=== PATIENT | male | born 1930 | race Caucasian/White ===

== ENCOUNTER 2017-07-23 02:45 | Inpatient (IN) | payer OTHER, MEDICARE ==
[~2017-07-23] VITALS: Ht 182.9 cm; Wt 76.2 kg
[~2017-07-23 02:45] MED LIST: ST. JOSEPH ASPI81 M1 PO; XALATAN2.5 ML OPH
--- NOTE | 2017-07-23 11:31 | Admission Core Measures ---
Acute Coronary Syndrome (CM) ACS Core Measures Acute Coronary Syndrome Diagnosis No Congestive Heart Failure (NEW) CHF Core Measures Congestive Heart Failure Diagnosis No Cerebrovascular Accident (NEW) CVA Core Measures CVA/TIA Diagnosis No Venous Thromboembolism VTE Core Jr (View Protocol) VTE Risk Factors Surgery No Mechanical VTE Prophylaxis d/t N/A MechProphylax Ordered No VTE Pharm Prophylaxis d/t NA PharmProphylax ordered Problem List As ranked by this Provider includes Assessment & Plan 1. Unilateral primary osteoarthritis, left knee HOME MEDS Home Med List Aspirin ([place] Aspirin) 81 MG TABLET.DR 1 TAB PO D ElasticDot ( Reported) Latanoprost (Xalatan) 0.005 % DROPS 1 GTT OPH QPM GLAUCOMA (Reported)
--- NOTE | 2017-07-23 11:33 | Surg Short-stay <48hrs Dis Sum ---
Visit Information Visit Dates Admission Date: 07/23/17 Discharge Date: 07/26/17 Surgical Short Stay DC Summary Admission Diagnosis: Primary osteoarthritis, left knee Final Diagnosis: WERO s/p left knee replacement Procedure(s): Left knee replacement Summary/Significant Findings: Patient was admitted to the hospital for an elective left total knee replacement. The procedure was tolerated well and patient was transferred to a general surgical floor. Diet was advanced and tolerated and the patient voided spontaneously. The patient was evaluated and treated by physical therapy. At the time of hospital discharge, the vital signs were stable, neurovascular status was intact, and pain was controlled with the use of oral pain medications. Condition at Discharge: Stable Discharge Disposition: home health services Discharge instructions provided to patient/family: Yes Post discharge follow-up plan: F/u in [address] Santiago
[2017-07-23] MEDS ORDERED: DILAUDID2 M1 PO (11:44)
[2017-07-23] MEDS ORDERED: MIRALAX17 G1 PO (11:44)
[2017-07-23] MEDS ORDERED: COLACE100 M1 PO (11:44)
[2017-07-23] MEDS ORDERED: ASPIRIN325 M2 PO (11:44)
[2017-07-23] MEDS ORDERED: OMEPRAZOLE20 M2 PO (11:44)
--- NOTE | 2017-07-23 11:48 | Patient Discharge Instructions ---
Discharge Instructions General Discharge Information You were seen/treated for: Left knee osteoarthritis You had these procedures: Left knee replacement on 07/23/17 Watch for these problems: Increasing pain despite the use of pain medication Increasing redness, warmth or swelling Drainage of any type from incision Inability to bear weight on operative leg Persistent nausea and vomiting Fever greater than 101.5 degrees Other wound care: Please keep wound clean and dry. No ointments or lotions of any type on or near incision. Your dressing will be changed by your nurse on the second day after your surgery. Daily dry dressing changes are recommended each day thereafter. Do not soak your wound- no tub baths/swimming. You may shower 48hr after surgery. Special Instructions: Aspirin: You are taking this medication to help prevent blood clot formation. Please take with food to protect your stomach lining. Please take as directed. Please stop taking Aspirin 81 mg daily as you are now taking a higher dose Aspirin 325 mg twice daily. Constipation: Pain medication can cause constipation. It is recommended that you take Colace and Miralax each day. Discontinue this medication if you develop loose stool or diarrhea. If you wish to continue this medication, it is available over the counter. If you are unable to move your bowels or unable to pass gas and are developing bloating, nausea, or vomiting as a result, please contact your doctor. Diet Continue normal diet: Yes Activity Activity Self Limited: Yes Activity Limited to: Weight bear as tolerated Other activity limits: Use rolling walker as needed Acute Coronary Syndrome Inclusion Criteria At DC or during hospital stay patient has or had the following: ACS DIAGNOSIS No Discharge Core Measures Meds if any: Prescribed or Continued at Discharge Meds if any: NOT Prescribed or Continued at Discharge Congestive Heart Failure Inclusion Criteria At DC or during hospital stay patient has or had the following: CHF DIAGNOSIS No Discharge Core Measures Meds if any: Prescribed or Continued at Discharge Meds if any: NOT Prescribed or Continued at Discharge Cerebrovascular accident Inclusion Criteria At DC or during hospital stay patient has or had the following: CVA/TIA Diagnosis No Discharge Core Measures Meds if any: Prescribed or Continued at Discharge Meds if any: NOT Prescribed or Continued at Discharge Venous thromboembolism Inclusion Criteria VTE Diagnosis No VTE Type NONE VTE Confirmed by (Test) NONE Discharge Core Measures - Per Current guidelines, there needs to be overlap - treatment for the first 5 days of Warfarin therapy. - If discharged on Warfarin prior to 5 days of - overlap therapy, the patient will need to be - assessed for post discharge needs including - *Post discharge parental anticoagulation - *Warfarin and/or parental anticoagulation education - *Follow up date to check INR post discharge At least 5 days overlap therapy as Inpatient No Meds if any: Prescribed or Continued at Discharge Note: Overlap Therapy is Warfarin and Anticoagulant Meds if any: NOT Prescribed or Continued at Discharge
--- NOTE | 2017-07-23 15:54 | PN- Orthopedic ---
Subjective Subjective: POSTOP CHECK Patient denies any postop pain, he reports numbness in both legs. Tolerating gilmer zandra without any nausea or vomiting. Offers no complaints. Denies voiding. Objective Vital Signs and I&Os Intake & Output 07/23 1600 07/23 0800 07/23 0000 07/22 1600 07/22 0807/22 0000 Intake Total Output Total Balance Patient 165 lb Weight Physical Exam: Vitals - BP 112/73, T 96.6, P 78, O2 sat 95% on RA Gen - patient resting comfortably in pacu awake an alert in NAD, [place]AC [place] in left ear Cardiac - S1S2 noted, RRR Lungs - CTAB Ext - LLE with chela wrap, ice and onQ in place, dressing c/d/i, motor and sensory diminished due to spinal, no edema or calf tenderness, alps present Current Medications: Current Medications Sig/Mario Alberto Start time Last Medication Dose Route Stop Time Status Admin Acetaminophen 975 MG ONCE 07/23 0000 NR PO 07/23 2359 Cefazolin Sodium 2,000 MG ONCE 07/23 0000 NR IV 07/23 235 Fentanyl Citrate 100 MCG .STK-MED ONE 07/23 0725 DC IM 07/23 07 Midazolam HCl 2 MG .STK-MED ONE 07/23 07 DC IM 07/23 07 Morphine Sulfate 10 MG .STK-MED ONE 07/23 07 DC IV 07/23 07 Oxycodone HCl 10 MG ONCE 07/23 0000 NR PO 07/23 235 Ropivacaine 500 ML ONCE ONE 07/23 1045 DC ON-Q Ball 1 BAG INJ 07/23 1046 Tranexamic Acid 2,000 MG .STK-MED ONE 07/23 07 DC IV 07/23 07 Assessment/Plan Assessment/Plan This is a 86 M POD 0 s/p L TKR with B/L lower extremity numbness related to spinal block PT eval, WBAT Advance diet, cont IVF Postop abx - ancef x2 Pain regimen, onQ, ice prn DVT ppx - alps, asa bid GI ppx on board Home med on board Bowel regimen on board Monitor postop void Encourage IS Core Measures Venous Thromboembolism VTE Risk Factors Surgery No Mechanical VTE Prophylaxis d/t N/A MechProphylax Ordered No VTE Pharm Prophylaxis d/t NA PharmProphylax ordered
--- NOTE | 2017-07-23 16:41 | Operative Report ---
Operative/Inv Procedure Report Surgery Date: 07/23/17 Name of Procedure: 1. Left total knee replacement 2. Right knee cortisone injection Pre-Operative Diagnosis: Bilateral knee primary DJD Post-Operative Diagnosis: Same Estimated Blood Loss: 50ml to 100ml Surgeon/Wood Machinist: Pamela KRUSE,Nuno Robert Anesthesia: block Operative/Procedure Note Note: Description of Procedure: The patient was taken to the operating room and positively identified. After induction of spinal anesthesia and administration of appropriate pre-operative antibiotics, the patient was positioned supine on the operating room table and all bony prominences were well padded. The right knee was prepped sterilely and injected with a mixture of 2 mL of Depo -Medrol and 6 mL of half percent Marcaine. A Band-Aid was placed over the injection site. Attention was then turned to the left lower extremity. A well-padded pneumatic tourniquet was placed on the left upper thigh. After performing a surgical timeout, the left lower extremity was prepped and draped in the usual sterile fashion. After exsanguination with Esmarch the tourniquet was inflated to 250mm of mercury. A standard medial parapatellar approach was made to the knee. This was carried down through skin and subcutaneous tissue to the level of the fascia. Meticulous hemostasis was maintained with Bovie electrocautery. The extensor mechanism and patellar retinaculum were opened sharply and the patella was everted. The infrapatellar fat was resected in order to improve exposure. Osteophytes were trimmed from the patella and femoral condyles and the patella was re-everted and tucked laterally. A medial release was performed and the cruciate ligaments were resected. The tibia was then subluxed anteriorly. Utilizing the appropriate extra-medullary guide, the proximal tibia was trimmed perpendicular to the long axis of the tibial shaft. Attention was then turned to the femur. After opening the medullary canal, the distal femoral cut was made in 6 degrees of valgus utilizing the appropriate intra-medullary guide. The extension gap was checked and found to be appropriate. The femur was then sized and the remainder of the femoral cuts were made with a size 5 4-in-1 femoral cutting guide. The flexion gap was checked and found to be symmetric and appropriate. The knee was then trialed with a size 5 femoral component, a size 6 tibial component and a size 11 mm polyethylene insert. The patella was trimmed to accept an A 35 patella. This yielded excellent range of motion, stability and patellar tracking. All trial components were removed and the knee was copiously irrigated with sterile saline. All components were cemented into place with [place] Simplex cement. All the components were of the [employer] Triathlon knee system of the above stated sizes. The knee was again irrigated after cementation. The extensor mechanism and patellar retinaculum were repaired using interrupted #1 vicryl suture. The skin was re-approximated with 2-0 vicryl and closed with marcelino. A sterile dressing was applied, the tourniquet was deflated, the patient was awakened and taken to the recovery room in satisfactory condition.
[2017-07-23 16:43] VITALS: BP 112/62
[2017-07-23 20:40] VITALS: BP 108/68
[2017-07-23 23:18] VITALS: BP 111/74
[2017-07-24 06:42] VITALS: BP 130/90
[2017-07-24 08:05] LABS: ABSOLUTE BASOPHIL COUNT 0.1 /CUMM (0.0-0.2); ABSOLUTE EOSINOPHIL COUNT 0.3 /CUMM (0.0-0.7); ABSOLUTE GRANULOCYTE CT 8.1 /CUMM (1.4-6.5); ABSOLUTE LYMPH COUNT 10.9 /CUMM (1.2-3.4); ABSOLUTE MONOCYTE COUNT 2.9 /CUMM (0.10-0.60); BASOPHIL % 0.5 % (0.0-2.0); EOSINOPHIL % 1.1 % (0-5); GRANULOCYTE % 36.3 % (42.2-75.2); HEMATOCRIT 42.1 % (42-52); MEAN CORPUSCULAR HGB 31.5 PG (27.0-31.0); MEAN CORPUSCULAR VOLUME 95.5 FL (80.0-94.0); MEAN PLATELET VOLUME 7.4 FL (7.4-10.4); PLATELET COUNT 217 /CUMM (130-400); RBC DISTRIBUTION WIDTH 15.1 % (11.5-14.5); RED BLOOD CELL CT 4.41 /CUMM (4.70-6.10); WHITE BLOOD CELL COUNT 22.2 /CUMM (4.8-10.8)
--- NOTE | 2017-07-24 10:05 | PN- Orthopedic ---
Subjective Subjective: Minimal pain, no acute events overnight, patient feeling well. No voiced complaints Objective Vital Signs and I&Os Vital Signs Date Time Temp Pulse Resp B/P B/P Pulse O2 O2 Flow FiO2 Mean Ox Delivery Rate 07/24 0642 98.4 88 20 130/90 95 Room Air 07/23 2318 98.0 81 20 111/74 96 Room Air 07/23 2040 97.6 84 18 108/68 91 Room Air 07/23 2009 Room Air 07/23 1643 97.9 78 18 112/62 96 Room Air Intake & Output 07/24 1600 07/24 0807/24 0000 07/23 1600 07/23 0000 Intake Total 930 Output Total 650 450 Balance 280 -450 Intake, IV 450 Intake, Oral 480 Number 2 Bowel Movements Output, Urine 650 450 Patient 168 lb Weight Weight Standing Scale Measurement Method Physical Exam: Well-developed well-nourished no apparent distress. HEENT: Atraumatic, extraocular motion intact Neck: Supple, no lymphadenopathy Respiratory: No respiratory distress Extremities: No edema on Q in place LEFT lower extremity dressing in place, Incision line is clean dry and intact with minimal bloody drainage. No signs of infection. Mild joint effusion Range of motion is 0-90. Compression wrap in place. ALPS in place Neurovascularly intact distally Bilateral calves are supple, nontender. Neuro: Alert and oriented x3 Psych: Mood affect normal, normal memory normal judgment. Skin: Warm and dry, no rash on exposed skin Results Last 48 Hours of Labs: Laboratory Tests 07/24 0714 Chemistry Sodium (137 - 145 mmol/L) 139 Potassium (3.5 - 5.1 mmol/L) 4.4 Chloride (98 - 107 mmol/L) 108 H Carbon Dioxide (22 - 30 mmol/L) 20 L Anion Gap (5 - 16) 11 BUN (9 - 20 mg/dL) 12 Creatinine (0.7 - 1.2 mg/dL) 0.8 Estimated GFR (>60 ml/min) > 60 BUN/Creatinine Ratio (7 - 25 %) 15.0 Hematology CBC w Diff MAN DIFF ORDERED WBC (4.8 - 10.8 /CUMM) 22.2 H RBC (4.70 - 6.10 /CUMM) 4.41 L Hgb (14.0 - 18.0 G/DL) 13.9 L Hct (42 - 52 %) 42.1 MCV (80.0 - 94.0 FL) 95.5 H MCH (27.0 - 31.0 PG) 31.5 H MCHC (33.0 - 37.0 G/DL) 33.0 RDW (11.5 - 14.5 %) 15.1 H Plt Count (130 - 400 /CUMM) 217 MPV (7.4 - 10.4 FL) 7.4 Gran % (42.2 - 75.2 %) 36.3 L Lymphocytes % (20.5 - 51.1 %) 49.2 Monocytes % (1.7 - 9.3 %) 12.9 H Eosinophils % (0 - 5 %) 1.1 Basophils % (0.0 - 2.0 %) 0.5 Absolute Granulocytes (1.4 - 6.5 /CUMM) 8.1 H Absolute Lymphocytes (1.2 - 3.4 /CUMM) 10.9 H Absolute Monocytes (0.10 - 0.60 /CUMM) 2.9 H Absolute Eosinophils (0.0 - 0.7 /CUMM) 0.3 Absolute Basophils (0.0 - 0.2 /CUMM) 0.1 Platelet Estimate (ADEQUATE) VERIFIED BY SMEAR Poikilocytosis 1+ Anisocytosis 1+ [place]bbie Cells 1+ Assessment/Plan Assessment/Plan Postop day #1 status post left total knee arthroplasty Perioperative antibiotics. Pain medication as needed. Out of bed Physical therapy, weightbearing as tolerated DC IV fluids Continue on Q Regular diet Leukocytosis, likely reactive, will recheck tomorrow, monitor fever trend Aspirin for DVT prophylaxis ALPS for DVT prophylaxis Regular home meds Dressing change postop day 2 Plan for dc to home w vna 1-2 days Core Measures Venous Thromboembolism VTE Risk Factors Surgery No Mechanical VTE Prophylaxis d/t N/A MechProphylax Ordered No VTE Pharm Prophylaxis d/t NA PharmProphylax ordered
[2017-07-24 15:16] VITALS: BP 128/76
[2017-07-24 19:05] VITALS: BP 118/76
[2017-07-24 23:13] VITALS: BP 123/80
[2017-07-25 02:55] VITALS: BP 128/74
[2017-07-25 07:00] VITALS: BP 118/76
--- NOTE | 2017-07-25 07:43 | PN- Orthopedic ---
Subjective Subjective: Pt sitting in bed eating breakfast with no complaints. He denies subjective fevers, although his temp was up to 100.7 last night. Says he has had a mildy productive cough but feels fine. voiding, no dysurea. working with PT, hoping to get cleared to do stairs today. Objective Vital Signs and I&Os Vital Signs Date Time Temp Pulse Resp B/P B/P Pulse O2 O2 Flow FiO2 Mean Ox Delivery Rate 07/25 07 98.3 91 20 118/76 92 07/25 0255 98.8 95 20 128/74 96 07/24 2313 100.2 104 18 123/80 95 Room Air 07/24 1905 100.7 124 20 118/76 94 07/24 1516 100.0 90 18 128/76 93 Room Air Intake & Output 07/25 0807/25 0000 07/24 1600 07/24 0807/24 0000 07/23 1600 Intake Total 580 650 930 Output Total 450 600 500 650 450 Balance 130 -600 150 280 -450 Intake, IV 100 150 450 Intake, Oral 480 500 480 Number 1 2 Bowel Movements Output, Urine 450 600 500 650 450 Patient 168 lb Weight Weight Standing Scale Measurement Method Physical Exam: gen- NAD resp- clear bilaterally, decreased breath sounds at bases cardio-rrr abd- soft nontender ext- left knee in chela bandage, onQ is out, dressing clean and dry. distal sensory and motor function intact. 2+ PT pulse bilaterally Current Medications: Current Medications Sig/Mario Alberto Start time Last Medication Dose Route Stop Time Status Admin Acetaminophen 1,000 MG Q6 07/24 2359 AC 07/25 IV 07/25 1801 0537 Aspirin 325 MG BID 07/23 2199 AC 07/24 PO 2108 Dextrose/Sodium 1,000 ML .[id number] 07/23 1630 DC 07/24 Chloride IV 0515 Docusate Sodium 100 MG BID 07/23 220 AC 07/24 PO 2108 Hydromorphone HCl 2 MG Q4P PRN 07/23 1630 AC PO Hydromorphone HCl 4 MG Q4P PRN 07/23 1630 AC PO Latanoprost 1 GTT AT BEDTIME 07/23 2199 AC 07/24 OPH 2108 Morphine Sulfate 2 MG Q2P PRN 07/23 1630 AC IV Omeprazole 20 MG DAILY AC 07/24 0700 AC 07/25 PO 0536 Ondansetron HCl 4 MG Q6P PRN 07/23 1630 AC IV Patient Medication 1 ED ONE ONE 07/24 1730 DC Teaching ED 07/24 1731 Polyethylene Glycol 17 GM DAILY 07/24 1000 AC 07/24 PO 0846 Promethazine HCl 12.5 MG Q6P PRN 07/23 1630 AC IV 07/30 1144 Results Last 48 Hours of Labs: Laboratory Tests 07/25 07/24 0637 0714 Chemistry Sodium (137 - 145 mmol/L) 139 Potassium (3.5 - 5.1 mmol/L) 4.4 Chloride (98 - 107 mmol/L) 108 H Carbon Dioxide (22 - 30 mmol/L) 20 L Anion Gap (5 - 16) 11 BUN (9 - 20 mg/dL) 12 Creatinine (0.7 - 1.2 mg/dL) 0.8 Estimated GFR (>60 ml/min) > 60 BUN/Creatinine Ratio (7 - 25 %) 15.0 Hematology CBC w Diff Pending MAN DIFF ORDERED WBC (4.8 - 10.8 /CUMM) Pending 22.2 H RBC (4.70 - 6.10 /CUMM) Pending 4.41 L Hgb (14.0 - 18.0 G/DL) Pending 13.9 L Hct (42 - 52 %) Pending 42.1 MCV (80.0 - 94.0 FL) Pending 95.5 H MCH (27.0 - 31.0 PG) Pending 31.5 H MCHC (33.0 - 37.0 G/DL) Pending 33.0 RDW (11.5 - 14.5 %) Pending 15.1 H Plt Count (130 - 400 /CUMM) Pending 217 MPV (7.4 - 10.4 FL) Pending 7.4 Gran % (42.2 - 75.2 %) 36.3 L Lymphocytes % (20.5 - 51.1 %) 49.2 Monocytes % (1.7 - 9.3 %) 12.9 H Eosinophils % (0 - 5 %) 1.1 Basophils % (0.0 - 2.0 %) 0.5 Absolute Granulocytes (1.4 - 6.5 /CUMM) 8.1 H Absolute Lymphocytes (1.2 - 3.4 /CUMM) 10.9 H Absolute Monocytes (0.10 - 0.60 /CUMM) 2.9 H Absolute Eosinophils (0.0 - 0.7 /CUMM) 0.3 Absolute Basophils (0.0 - 0.2 /CUMM) 0.1 Platelet Estimate (ADEQUATE) VERIFIED BY SMEAR Poikilocytosis 1+ Anisocytosis 1+ [place] Cells 1+ Assessment/Plan Assessment/Plan 86yo M SP L TKA POD2. Had low grade temp overnight, IV tylenol started and has mild productive cough. Will order CXR this AM PT- needs to be cleared on stairs will change dressing prior to DC to home DVT ppx-ASA and alps reg diet Encourage IS Possible DC later today if cleared by PT FU AM labs and CXR Core Measures Venous Thromboembolism VTE Risk Factors Surgery No Mechanical VTE Prophylaxis d/t N/A MechProphylax Ordered No VTE Pharm Prophylaxis d/t NA PharmProphylax ordered
[2017-07-25 07:53] LABS: ABSOLUTE BASOPHIL COUNT 0.1 /CUMM (0.0-0.2); ABSOLUTE EOSINOPHIL COUNT 0.5 /CUMM (0.0-0.7); ABSOLUTE GRANULOCYTE CT 7.3 /CUMM (1.4-6.5); ABSOLUTE LYMPH COUNT 14.5 /CUMM (1.2-3.4); ABSOLUTE MONOCYTE COUNT 3.1 /CUMM (0.10-0.60); BASOPHIL % 0.4 % (0.0-2.0); EOSINOPHIL % 1.8 % (0-5); GRANULOCYTE % 28.6 % (42.2-75.2); MEAN CORPUSCULAR HGB 31.6 PG (27.0-31.0); MEAN CORPUSCULAR HGB CONC 33.3 G/DL (33.0-37.0); MEAN CORPUSCULAR VOLUME 95.2 FL (80.0-94.0); MEAN PLATELET VOLUME 7.4 FL (7.4-10.4); PLATELET COUNT 208 /CUMM (130-400); RBC DISTRIBUTION WIDTH 15.9 % (11.5-14.5); RED BLOOD CELL CT 3.99 /CUMM (4.70-6.10); WHITE BLOOD CELL COUNT 25.5 /CUMM (4.8-10.8)
[2017-07-25 11:00] VITALS: BP 120/68
[2017-07-25 14:09] VITALS: BP 108/60
--- NOTE | 2017-07-25 15:41 | RADIOLOGY REPORT ---
EXAMINATION: CR CHEST CLINICAL INFORMATION: Postop low-grade temperature and mild productive cough. Presumptive diagnosis of pneumonia versus atelectasis. COMPARISON: None TECHNIQUE: 2 views of the chest were obtained. FINDINGS: The cardiomediastinal silhouette is within normal limits in size. Tortuosity and calcification of the aorta is seen. Lungs bilaterally are symmetrically expanded and clear. No focal consolidation, effusion or pneumothorax is seen. Mild vertebral spondylosis is seen in the mid and lower thoracic spine. IMPRESSION: No evidence of focal pneumonia or atelectasis.
[2017-07-25 18:00] VITALS: BP 118/70
[2017-07-25 22:08] VITALS: BP 108/70
[2017-07-26 01:56] VITALS: BP 112/72
[2017-07-26 06:31] VITALS: BP 104/62
--- NOTE | 2017-07-26 07:47 | PN- Orthopedic ---
Subjective Subjective: Feels well, pain controlled. Cleared stairs with PT yesterday. Voiding spontanously. Eager to go home today. Offers no complaints. No further fevers, CXR from yesterday revealed no evidence of active disease. Objective Vital Signs and I&Os Vital Signs Date Time Temp Pulse Resp B/P B/P Pulse O2 O2 Flow FiO2 Mean Ox Delivery Rate 07/26 0631 98.0 88 20 104/62 93 07/26 0156 98.4 93 20 112/72 93 07/25 2208 98.0 111 19 108/70 95 Room Air / 1800 98.2 109 19 118/70 95 Room Air 07/25 1409 97.8 103 20 108/60 96 Room Air 07/25 1100 97.7 99 20 120/68 95 Room Air Intake & Output 07/26 0800 07/26 0000 07/25 1600 07/25 0800 07/25 0000 07/24 1600 Intake Total 801 669 4014 580 650 Output Total 300 350 450 600 500 Balance 50 100 1510 130 -600 150 Intake, IV 100 100 150 Intake, Oral 755 071 9056 480 500 Number 0 1 Bowel Movements Output, Urine 300 350 450 600 500 Physical Exam: Gen - patient resting comfortably in pacu awake an alert in NAD, [place] in left ear Cardiac - S1S2 noted, RRR Lungs - CTAB Ext - L knee c/d/i, incision closed with marcelino healing well with no signs of infection, motor and sensory intacts, no edema or calf tenderness, alps present Current Medications: Current Medications Sig/Mario Alberto Start time Last Medication Dose Route Stop Time Status Admin Acetaminophen 1,000 MG Q6 07/24 2359 DC 07/25 IV 07/25 1801 1854 Aspirin 325 MG BID 07/23 2200 AC 07/25 PO 2140 Docusate Sodium 100 MG BID 07/23 2200 AC 07/25 PO 2140 Hydromorphone HCl 2 MG Q4P PRN 07/23 1630 AC PO Hydromorphone HCl 4 MG Q4P PRN 07/23 1630 AC PO Latanoprost 1 GTT AT BEDTIME 07/23 2199 AC 07/25 OPH 2139 Morphine Sulfate 2 MG Q2P PRN 07/23 1630 AC IV Omeprazole 20 MG DAILY AC 07/24 0700 AC 07/26 PO 0537 Ondansetron HCl 4 MG Q6P PRN 07/23 1630 AC IV Patient Medication 1 ED ONE ONE 07/25 1315 DC Teaching ED 07/25 1316 Polyethylene Glycol 17 GM DAILY 07/24 1000 AC 07/25 PO 1154 Promethazine HCl 12.5 MG Q6P PRN 07/23 1630 AC IV 07/30 1144 Results Last 48 Hours of Labs: Laboratory Tests 07/25 0637 Hematology CBC w Diff NO MAN DIFF REQ WBC (4.8 - 10.8 /CUMM) 25.5 H RBC (4.70 - 6.10 /CUMM) 3.99 L Hgb (14.0 - 18.0 G/DL) 12.6 L Hct (42 - 52 %) 38.0 L MCV (80.0 - 94.0 FL) 95.2 H MCH (27.0 - 31.0 PG) 31.6 H MCHC (33.0 - 37.0 G/DL) 33.3 RDW (11.5 - 14.5 %) 15.9 H Plt Count (130 - 400 /CUMM) 208 MPV (7.4 - 10.4 FL) 7.4 Gran % (42.2 - 75.2 %) 28.6 L Lymphocytes % (20.5 - 51.1 %) 56.9 H Monocytes % (1.7 - 9.3 %) 12.3 H Eosinophils % (0 - 5 %) 1.8 Basophils % (0.0 - 2.0 %) 0.4 Absolute Granulocytes (1.4 - 6.5 /CUMM) 7.3 H Absolute Lymphocytes (1.2 - 3.4 /CUMM) 14.5 H Absolute Monocytes (0.10 - 0.60 /CUMM) 3.1 H Absolute Eosinophils (0.0 - 0.7 /CUMM) 0.5 Absolute Basophils (0.0 - 0.2 /CUMM) 0.1 Assessment/Plan Assessment/Plan This is a 86 M POD 3 s/p L TKR who is recovering well and cleared by PT. Stable for discharge at this time OOB, WBAT Reg diet Pain regimen and ice prn Daily dry dressing changes DVT ppx - alps, asa bid GI ppx on board Home med on board Bowel regimen on board Encourage IS D/c today Will d/w Dr. Santiago Core Measures Venous Thromboembolism VTE Risk Factors Surgery No Mechanical VTE Prophylaxis d/t N/A MechProphylax Ordered No VTE Pharm Prophylaxis d/t NA PharmProphylax ordered
== END 2017-07-26 13:12 | disposition home health service (06) | DRG 470 ==
LOC: SDA 02:45 → ENRESERV 15:02 → ENTRNSPT 15:36 → EDTRNSPT 15:56 → EDTRNSPTSTS 15:56 → 2NB 16:06 → CMPTRNSPT 16:24 → ENPENDDIS 07-26 07:52 → ENTRNSPT 07-26 12:29 → EDTRNSPTSTS 07-26 13:01 → EDTRNSPT 07-26 13:01 → 2NB 07-26 13:12 → CMPTRNSPT 07-26 14:10
PROVIDERS: Physician Assistant Surgical
PROC: 0SRD0J9 Replacement of Left Knee Joint with Synthetic Substitute, Cemented, Open Approach (ICD-10-PCS; principal; 2017-07-23)
PROC: 3E0U33Z Introduction of Anti-inflammatory into Joints, Percutaneous Approach (ICD-10-PCS; principal; 2017-07-23)
PROC: 3E0U3BZ Introduction of Anesthetic Agent into Joints, Percutaneous Approach (ICD-10-PCS; principal; 2017-07-23)
PROC: 3E0T3BZ Introduction of Anesthetic Agent into Peripheral Nerves and Plexi, Percutaneous Approach (ICD-10-PCS; 2017-07-23)
DX: M17.0 Bilateral primary osteoarthritis of knee (principal); C91.10 Chronic lymphocytic leukemia of B-cell type not having achieved remission; F17.200 Nicotine dependence, unspecified, uncomplicated; N40.1 Benign prostatic hyperplasia with lower urinary tract symptoms
CPT/HCPCS: 2NBSP; 36592; 71046; 82436; 97110-GO; 97116-GO; 97161-GP; 97530-GO; C1713; J0131; J0690; J1030; J2405; J2550; J2795; J7042